=== PATIENT | female | born 1995 | race Caucasian/White ===

== ENCOUNTER 2018-04-20 18:12 | Emergency (ER) | payer SELFPAY ==
--- NOTE | 2018-04-20 19:10 | ER Document Report ---
ED Psych Disorder / Suicide - General Chief Complaint: Psych Problem Stated Complaint: SUICIDAL THOUGHTS Time Seen by Provider: 04/20/18 19:10 Mode of Arrival: Ambulatory Information source: Patient Notes: HISTORY OF PRESENT ILLNESS: Patient is a 22-year-old female with a past medical history of general anxiety disorder with previous suicidal thoughts and self cutting behavior who presents with increased depression sent to the emergency department by her therapist after concerned the patient was suicidal. Onset: Chronic, worsening "the past few days" Provocation: None Quality: Depressed Radiation: None Severity: Moderate to severe Timing: Constant SI/HI: Positive suicidal thoughts without a plan, negative homicidal thoughts Hallucinations: None Current therapist: Yes Current treatment: None REVIEW OF SYSTEMS: CONSTITUTIONAL : Denies fever or chills, no sweats. Denies recent illness. EENT: Denies eye, ear, throat, or mouth pain or symptoms. Denies nasal or sinus congestion. CARDIOVASCULAR: Denies chest pain. RESPIRATORY: Denies cough, cold, or chest congestion. Denies shortness of breath, difficulty breathing, or wheezing. GASTROINTESTINAL: Denies abdominal pain. Denies nausea, vomiting, or diarrhea. Denies constipation. GENITOURINARY: Denies difficulty urinating, painful urination, burning, frequency, or blood in urine. FEMALE GENITOURINARY: Denies vaginal bleeding, abnormal or irregular periods. Last menstrual period MUSCULOSKELETAL: Denies neck or back pain or joint pain or swelling. SKIN: Denies rash or skin lesions. HEMATOLOGIC : Denies easy bruising or bleeding. LYMPHATIC: Denies swollen, enlarged glands. NEUROLOGICAL: Denies altered mental status or loss of consciousness. Denies headache. Denies weakness or paralysis or loss of use of either side. Denies problems with gait or speech. Denies sensory or motor loss. PSYCHIATRIC: Positive for suicidal thoughts. Positive for chronic depression. All other systems reviewed and negative. PHYSICAL EXAMINATION: GENERAL: Well-appearing, well-nourished and in no acute distress. HEAD: Atraumatic, normocephalic. No scalp deformity, depression, or crepitance. EYES: Pupils are 3 mm and equal/round/reactive to light, extraocular movements intact, sclera anicteric, conjunctiva are normal. ENT: Nares patent bilaterally, oropharynx clear without exudates or palatal petechia. Moist mucous membranes. No tonsil hypertrophy. NECK: Normal range of motion, supple without lymphadenopathy. LUNGS: Breath sounds present, equal, and clear to auscultation bilaterally. No wheezes, rales, or rhonchi. HEART: Regular rate and rhythm without murmurs, rubs, or gallops. 2+ peripheral pulses. Normal capillary refill. ABDOMEN: Soft, nontender, nondistended. Normoactive bowel sounds. No guarding, no rebound. No masses appreciated. BACK: Normal contour, no midline tenderness. Rectal exam deferred. PELVC: Deferred. EXTREMITIES: Normal range of motion, no pitting or edema. No cyanosis. NEUROLOGICAL: No focal neurological deficits. Moves all extremities spontaneously and on command. PSYCH: Depressed mood, normal affect. Positive for passive suicidal thoughts/ideations. No homocidal thoughts/ideations. No hallucinations. SKIN: Warm, dry, normal turgor, no rashes or lesions noted. ASSESSMENT AND PLAN: This patient is a 22-year-old female who presents with chronic depression and passive suicidal thoughts. 1. Will proceed with involuntary commitment after medical clearance. 2. Will keep until patient is evaluated by psychiatry in the morning. TRAVEL OUTSIDE OF THE [place] IN LAST 30 DAYS: No - Related Data Allergies/Adverse Reactions: No Known Allergies Allergy (Unverified 04/20/18 18:18) Past Medical History - General Information source: Patient - Social History Smoking Status: Never Smoker Chew tobacco use (# tins/day): No Frequency of alcohol use: None Drug Abuse: None Lives with: Family Family History: Reviewed & Not Pertinent Patient has suicidal ideation: Yes Patient has homicidal ideation: No - Past Medical History Cardiac Medical History: Reports: None Pulmonary Medical History: Reports: None EENT Medical History: Reports: None Neurological Medical History: Reports: None Endocrine Medical History: Reports: None Renal/ Medical History: Reports: None. Denies: Hx Peritoneal Dialysis Malignancy Medical History: Reports: None GI Medical History: Reports: None Musculoskeletal Medical History: Reports None Skin Medical History: Reports None Psychiatric Medical History: Reports: Hx Depression Traumatic Medical History: Reports: None Infectious Medical History: Reports: None Past Surgical History: Reports: Hx Orthopedic Surgery - L wrist in 4th grade - Immunizations Immunizations up to date: Yes Hx Diphtheria, Pertussis, Tetanus Vaccination: Yes History of Influenza Vaccine for 11/2016 - 04/2017 Season: Unknown Physical Exam - Vital signs Vitals: Temp Pulse Resp BP Pulse Ox 99.2 F 108 H 18 130/100 H 97 04/20/18 18:19 04/20/18 18:19 04/20/18 18:19 04/20/18 18:19 04/20/18 18:19 Course - Re-evaluation Re-evalutation: 04/21/18 04:10 Patient is medically cleared. - Vital Signs Vital signs: Temp Pulse Resp BP Pulse Ox 99.2 F 108 H 18 130/100 H 97 04/20/18 18:19 04/20/18 18:19 04/20/18 18:19 04/20/18 18:19 04/20/18 18:19 - Laboratory Result Diagrams: 04/20/18 19:08 04/20/18 19:08 Laboratory results interpreted by me: 04/20/18 19:08 Glucose 131 H AST 43 H ALT 89 H Salicylates < 1.0 L Acetaminophen < 10 L - EKG Interpretation by Nm EKG shows normal: Sinus rhythm Rate: Normal Rhythm: NSR [place]/QRS: No: Right axis deviation, Left axis deviation, RBBB, LBBB, IVCD, LAHB/LAFB, LPHB/LPFB, Bifasicular block Voltage: No: Increased voltage, Consistant with LVH, Decreased voltage, Through out, Limb leads P Waves: No: JUSTIN, LAE, Absent, AV Dissociation, Other Heart block present: No: 1st Degree, Mobitz 1, Mobitz 2, CHB (3rd degree block) When compared to previous EKG there are: No significant change Discharge - Discharge Clinical Impression: Chronic depression, Suicidal ideation Condition: Stable Disposition: PSYCH HOSP/UNIT
[2018-04-20 19:31] LABS: ABSOLUTE BASOPHILS # (AUTO) 0.1 10^3/uL (0.0-0.2); ABSOLUTE EOSINOPHILS # (AUTO) 0.1 10^3/uL (0.0-0.6); ABSOLUTE LYMPHOCYTES (AUTO) 1.5 10^3/uL (0.5-4.7); ABSOLUTE MONOCYTES (AUTO) 0.5 10^3/uL (0.1-1.4); ABSOLUTE NEUT (AUTO) 5.9 10^3/uL (1.7-8.2); BASOPHILS % (AUTO) 0.8 % (0-2); EOSINOPHILS % (AUTO) 0.7 % (0-6); HEMATOCRIT 41.9 % (36.0-47.0); HEMOGLOBIN 14.6 g/dL (12.0-15.5); LYMPHOCYTES % (AUTO) 18.4 % (13-45); MEAN CORPUSCULAR HEMOGLOBIN 30.8 pg (27.0-33.4); MEAN CORPUSCULAR HGB CONC 34.8 g/dL (32.0-36.0); MEAN CORPUSCULAR VOLUME 88 fl (80-97); MONOCYTES % (AUTO) 6.3 % (3-13); PLATELET COUNT 350 10^3/uL (150-450); RED BLOOD COUNT 4.73 10^6/uL (3.72-5.28); SEGMENTED NEUTROPHILS % (AUTO) 73.8 % (42-78); TOTAL CELLS COUNTED % (AUTO) 100 %
[2018-04-20 19:40] LABS: APPEARANCE,URINE SLIGHTLY-CLOUDY; BILIRUBIN,URINE NEGATIVE (NEGATIVE); COLOR,URINE YELLOW; GLUCOSE, URINE NEGATIVE (NEGATIVE); KETONES,URINE NEGATIVE (NEGATIVE); LEUKOCYTE ESTERASE,URINE NEGATIVE (NEGATIVE); NITRITE,URINE NEGATIVE (NEGATIVE); PROTEIN,URINE NEGATIVE (NEGATIVE); UROBILINOGEN,URINE NEGATIVE mg/dL (<2.0)
[2018-04-20 19:43] LABS: ACETAMINOPHEN < 10 ug/mL (10-30); ALANINE AMINOTRANSFERASE 89 U/L (9-52); ALBUMIN 4.7 g/dL (3.5-5.0); ALCOHOL < 10 mg/dL (NONE DETECTED); ALKALINE PHOSPHATASE 60 U/L (38-126); ANION GAP 9 (5-19); ASPARTATE AMINO TRANSFERASE 43 U/L (14-36); BILIRUBIN,DIRECT 0.2 mg/dL (0.0-0.4); BILIRUBIN,TOTAL 0.4 mg/dL (0.2-1.3); BLOOD UREA NITROGEN 12 mg/dL (7-20); CALCIUM 9.9 mg/dL (8.4-10.2); CARBON DIOXIDE 25 mmol/L (22-30); CHLORIDE 107 mmol/L (98-107); GLUCOSE 131 mg/dL (75-110); POTASSIUM 4.6 mmol/L (3.6-5.0); SALICYLATE < 1.0 mg/dL (2.0-20.0); SODIUM 140.7 mmol/L (137-145); TOTAL PROTEIN 7.2 g/dL (6.3-8.2)
[2018-04-20 19:45] LABS: URINE AMPHETAMINES SCREEN NEGATIVE; URINE BARBITURATES SCREEN NEGATIVE; URINE BENZODIAZEPINES SCREEN NEGATIVE; URINE COCAINE SCREEN NEGATIVE; URINE MARIJUANA (THC) SCREEN NEGATIVE; URINE METHADONE SCREEN NEGATIVE; URINE PHENCYCLIDINE SCREEN NEGATIVE
--- NOTE | 2018-04-21 09:40 | ER Document Report ---
Doctor's Note Notes: 04/21/18 09:40 As the rounding physician this AM, I assessed the patient's labs, vitals, and records. No concerning findings this morning. Patient denies any acute complaints. Patient is cleared for disposition by behavioral health team 04/21/18 11:55 She is evaluated by behavioral health services. She has passive suicidal ideation. Home-going recommendations include discontinuation of Celexa, BuSpar and starting of Zyprexa and Cogentin. Patient will follow up with integrated family services. She does have a safety plan and family members who are willing to help her.
--- NOTE | 2018-04-21 11:13 | PSYCHOLOGICAL NOTE ---
Psych Note - Psych Note Date seen by psych provider: 04/21/18 Time seen by psych provider: 07:10 - Physical Chart 0707, Chart review 0714. Evaluation from [id number]. Psych Note: Reason for Consult: Passive SI thoughts and thoughts of self harm Contact Permissions: Roommate Faby Shaw [phone] Patient is a 22 year old female who presented to the ED last evening as a voluntary walk in via roommate for passive thoughts of SI and thoughts of self harm. She identified she resided with a woman who is an [facility] MCM worker so could not evaluate her and instead brought her to the ED. She stated she has "general thoughts of suicide and self harm (last time she engaged in self harming behaviors was January 2018). She identified "a few weeks ago after being okay I felt bad, that's when the thoughts come, I don't think and I end up doing things to hurt myself." She acknowledged "yesterday I saw my therapist and was open about the SI, that I have been having a lot of SI, she said I needed to come been seen and sent somewhere." She reported the therapist is new and yesterday was the second visit. She further stated she has both therapy and medication management at [facility]. She is prescribed Celexa 40MG QD and Buspar 15MG TID. She reported she has been on this medication regimen since December 2017 from the [place] hospitalization. She acknowledged she has been hospitalized "over 10 times." She identified she was hospitalized in [facility] in [place] for 9 months, was discharged October 2017, and discharge was due to getting ready to turn 22 so aging out as well as self harming while in that facility so they sent her to [facility] for acute placement. She reported [facility] diagnosed her with Depression, PTSD, Anxiety and Borderline Personality Disorder. She acknowledged "I have been on a lot of different medications." She noted "Wellbutrin made me really angry, [place] decreased thyroid levels and Latuda was okay but expensive." She noted recent stress surrounding one of the children of the lady she resides with has 4 brain tumors and they are waiting to find out of cancerous or not. 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 Patient was alert and oriented to self, person, place, time and situation. Mood was depressed with flat affect (note she had been sleeping). She denied SI/HI in terms of any plans and admitted to general thoughts of suicide and self harm (has a history of SIB). She did not appear to be responding to internal stimuli as evidenced by fair eye contact, answering questions when addressed, carrying on dialogue conversation and staying on topic. Thought processes were linear and organized. Conversational speech was within normal limits for rate, tone and prosody. Intellectual abilities are estimated to be average. Insight, judgment and impulse control were fair as evidenced by verbalizing her passive SI and self harming thoughts to new therapist and others. Patient gave verbal consent to coordinate care with roommate who happens to be a [facility] M[employer] worker (in this case she is roommate). She identified she will assist patient with scheduling therapy. She noted they left straight form yesterday's therapy appointment and came to the ED so another appointment had not been scheduled. Diagnosis: 311 (F32.9) Unspecified Depressive Disorder per patient [facility] discharge diagnosis 300.00 (F41.9) Unspecified Anxiety Disorder per patient [facility] discharge diagnosis 309.81 (F43.10) Posttraumatic Stress Disorder per patient [facility] discharge d iagnosis 301.83 (F60.3) Borderline Personality Disorder by history per patient [facility] discharge diagnosis Medication recommendations made by the psychiatric medical provider, Dr. Noel gama MD., includes: Discontinue Celexa 40MG daily for depression/anxiety Discontinue Buspar 15MG three times a day for anxiety/calming effect/depression/sleep Add Zyprexa 5MG twice a day for mood stabilization/impulse control Add Cogentin 1MG daily to curb tremor side effects often associated with antipsychotic medication Impression/Plan: Patient is cleared from acute psychiatric services. Recommendation to rescind 24 Hour IVC Petition. She endorsed passive SI (no plans) and thoughts of self harm (has a history of SIB). She told therapist about the thoughts (again no plans, general thoughts) of SI and SIB. She has therapy (new therapist, second session was yesterday) and medication management at [facility]. [facility] identified next medication management appointment is scheduled for 05/07/18 at 1000 and patient can call in every day after 1300 to inquire about cancellations. There is not another therapy appointment scheduled because patient had come from her therapy session yesterday straight to the ED. She had a night of respite and a new medication regimen is being implemented. Patient provided with sheet that documented medication names (brand and generic), what they are meant to treat, doses, and frequencies. Also documented Good RX pooja/website information and cost of medications (cheapest [facility]), as well as next [facility] medication management appointment date and time. Provided Good RX coupon for one medication that required it. Roommate iftikhar teran a patient referral form would be faxed to [facility] for care coordination and continuity of care. Consulted with Dr. Jacobsen regarding the management and care of patient. ED Physician in agreement with recommendations.
[2018-04-21 12:11] VITALS: BP 108/54
--- NOTE | 2018-04-22 10:18 | EKG REPORT ---
SEVERITY:- NORMAL ECG - SINUS RHYTHM : Confirmed by: Irma Vallejo 22-Apr-2018 10:17:31
== END 2018-04-21 12:20 | disposition home or self-care (01) ==
LOC: ER 18:12
DX: R45.851 Suicidal ideations (principal); F32.9 Major depressive disorder, single episode, unspecified
CPT/HCPCS: 36415; 80053; 80307; 81001; 84703; 85025; 93005; 93010; 99285

== ENCOUNTER 2018-04-26 20:48 | Emergency (ER) | payer SELFPAY ==
--- NOTE | 2018-04-26 21:27 | RADIOLOGY REPORT (SQ) ---
EXAM DESCRIPTION: XR WRIST 3 OR MORE VIEWS COMPLETED DATE/TME: 04/26/2018 00:00 CLINICAL HISTORY: 22 years, Female, Fell and injured L wrist COMPARISON: None. FINDINGS: No acute fracture or dislocation. Old ulnar styloid fracture. Mild degenerative changes in the triscaphe joint. Mild soft tissue swelling. IMPRESSION: No acute osseous abnormality.
[2018-04-26] MEDS ORDERED: ACETAMINOPHEN 325 MG TABLET PO ONE (22:26)
[2018-04-26] MEDS ORDERED: IBUPROFEN 600 MG TABLET PO ONE (22:26)
--- NOTE | 2018-04-26 22:48 | ER Document Report ---
ED General - General Chief Complaint: Wrist Injury Stated Complaint: LEFT WRIS INJURY Time Seen by Provider: 04/26/18 21:55 Primary Care Provider: KENNY ARMENDARIZ DO [ACTIVE STAFF] - Follow up in 1 week Notes: Patient is a 22-year-old female with only psychiatric comorbidities, no chronic medical problems, presents complaining of pain to the left wrist. Patient states that she tripped over a carpet, fell onto the ground with an extended left hand. Patient states that since that time she has had throbbing, aching, constant pain to the left wrist. Moving the wrist worsens the pain. Has not trying for improvement of the pain. She is right-hand dominant. Has noted some mild bruising and swelling over the wrist since that time. Did not sustain any additional injuries today. TRAVEL OUTSIDE OF THE [place] IN LAST 30 DAYS: No - Related Data Allergies/Adverse Reactions: No Known Allergies Allergy (Unverified 04/20/18 18:18) Past Medical History - General Information source: Patient - Social History Smoking Status: Never Smoker Frequency of alcohol use: None Drug Abuse: None Lives with: Friend Family History: Reviewed & Not Pertinent Patient has suicidal ideation: No Patient has homicidal ideation: No Renal/ Medical History: Denies: Hx Peritoneal Dialysis Psychiatric Medical History: Reports: Hx Depression Past Surgical History: Reports: Hx Orthopedic Surgery - L wrist in 4th grade - Immunizations Immunizations up to date: Yes Hx Diphtheria, Pertussis, Tetanus Vaccination: Yes Review of Systems - Review of Systems Notes: Constitutional: Negative for fever. Eyes: Negative for visual changes. ENT: Negative for facial injury Cardiovascular: Negative for chest injury. Respiratory: Negative for shortness of breath. Gastrointestinal: Negative for abdominal injury. Genitourinary: Negative for genital injury Musculoskeletal: Positive for left wrist injury Skin: Negative for laceration/abrasions. Neurological: Negative for head injury. Physical Exam - Vital signs Vitals: Temp Pulse Resp BP Pulse Ox 98.9 F 93 20 132/73 H 96 04/26/18 20:53 04/26/18 20:53 04/26/18 20:53 04/26/18 20:53 04/26/18 20:53 Interpretation: Normal Notes: PHYSICAL EXAMINATION: GENERAL: Well-appearing, well-nourished and in no acute distress. HEAD: Atraumatic, normocephalic. EYES: sclera anicteric, conjunctiva are normal. ENT: Moist mucous membranes. NECK: Normal range of motion LUNGS: Normal work of breathing HEART: 2+ radial pulses bilaterally, capillary refill less than 1 second in all digits of the left hand EXTREMITIES: There is bruising over the radial aspect of the left wrist. Exquisite tenderness over the anatomic snuffbox on palpation. RMU motor and sensory distribution intact including against resistance on motor testing. No pitting or edema. No cyanosis. NEUROLOGICAL: No focal neurological deficits. Moves all extremities spontaneously and on command. PSYCH: Normal mood, normal affect. SKIN: Warm, Dry, normal turgor, bruising as above. Course - Re-evaluation Re-evalutation: 04/26/18 22:48 Patient presents with pain left radial wrist radiating into her thumb. This occurred after a fall. There is some noted bruising over this aspect of her wrist. X-ray without any evidence of underlying fracture. However she has focal tenderness over the anatomic snuffbox and has therefore been placed in a thumb spica splint for possible occult scaphoid fracture. RMU motor and sensory distribution is intact. Patient did not sustain any additional injuries during the fall today. At this time will discharge with return precautions and follow- up recommendations. Verbal discharge instructions given a the bedside and opportunity for questions given. Medication warnings reviewed. Patient is in agreement with this plan and has verbalized understanding of return precautions and the need for orthopedic surgical follow-up in the next 24-72 hours. - Vital Signs Vital signs: Temp Pulse Resp BP Pulse Ox 98.5 F 91 18 136/59 H 99 04/26/18 23:29 04/26/18 23:29 04/26/18 23:29 04/26/18 23:29 04/26/18 23:29 - Diagnostic Test Radiology reviewed: Image reviewed, Reports reviewed Radiology results interpreted by me: 04/26/18 22:47 Left wrist x-ray: No acute fracture or dislocation Procedures - Immobilization Left Wrist Pre-Proc Neuro Vasc Exam: Normal Immobilizer type: Thumb spica Performed by: Provider assisted Post-Proc Neuro Vasc Exam: Normal Alignment checked and good: Yes Discharge - Discharge Clinical Impression: Possible scaphoid fracture Left wrist injury Qualifiers: Encounter type: initial encounter Qualified Code(s): S69.92XA - Unspecified injury of left wrist, hand and finger(s), initial encounter Fall Qualifiers: Encounter type: initial encounter Qualified Code(s): W19.XXXA - Unspecified fall, initial encounter Condition: Good Disposition: HOME, SELF-CARE Additional Instructions: Your x-ray does not show any acute fracture today. However, as we discussed you could have a possible underlying scaphoid fracture and have therefore been placed in a thumb spica splint which you need to keep on until you are cleared by orthopedic surgery. I recommend that you follow-up within 1 week with orthopedic surgery for repeat x-rays to evaluate for possible underlying fracture that is not yet able to be visualized. For pain, you should continue to take anti-inflammatories such as ibuprofen 600 mg every 6 hours. Continue to apply ice to the area is much your able. Please return immediately if you develop weakness, numbness, spreading redness from the area, or any other symptoms that are concerning to you. Referrals: KENNY ARMENDARIZ DO [ACTIVE STAFF] - Follow up in 1 week
[2018-04-26 23:33] VITALS: BP 136/59
== END 2018-04-26 23:33 | disposition home or self-care (01) ==
LOC: ER 20:48
DX: S60.212A Contusion of left wrist, initial encounter (principal); M25.532 Pain in left wrist; W01.0XXA Fall on same level from slipping, tripping and stumbling without subsequent striking against object, initial encounter; Y92.009 Unspecified place in unspecified non-institutional (private) residence as the place of occurrence of the external cause
CPT/HCPCS: 99283

== ENCOUNTER 2018-04-28 22:40 | Emergency (ER) | payer SELFPAY ==
[2018-04-28 23:56] LABS: ABSOLUTE BASOPHILS # (AUTO) 0.1 10^3/uL (0.0-0.2); ABSOLUTE EOSINOPHILS # (AUTO) 0.1 10^3/uL (0.0-0.6); ABSOLUTE LYMPHOCYTES (AUTO) 1.5 10^3/uL (0.5-4.7); ABSOLUTE MONOCYTES (AUTO) 0.5 10^3/uL (0.1-1.4); ABSOLUTE NEUT (AUTO) 6.3 10^3/uL (1.7-8.2); BASOPHILS % (AUTO) 0.8 % (0-2); EOSINOPHILS % (AUTO) 0.7 % (0-6); HEMATOCRIT 42.1 % (36.0-47.0); HEMOGLOBIN 14.7 g/dL (12.0-15.5); LYMPHOCYTES % (AUTO) 17.3 % (13-45); MEAN CORPUSCULAR HEMOGLOBIN 30.8 pg (27.0-33.4); MEAN CORPUSCULAR VOLUME 88 fl (80-97); MONOCYTES % (AUTO) 6.2 % (3-13); PLATELET COUNT 306 10^3/uL (150-450); RED BLOOD COUNT 4.78 10^6/uL (3.72-5.28); RED CELL DISTRIBUTION WIDTH 14.3 % (11.5-14.0); TOTAL CELLS COUNTED % (AUTO) 100 %; WHITE BLOOD COUNT 8.4 10^3/uL (4.0-10.5)
[2018-04-29 00:11] LABS: ALANINE AMINOTRANSFERASE 101 U/L (9-52); ALKALINE PHOSPHATASE 71 U/L (38-126); ANION GAP 11 (5-19); ASPARTATE AMINO TRANSFERASE 52 U/L (14-36); BILIRUBIN,DIRECT 0.2 mg/dL (0.0-0.4); BILIRUBIN,TOTAL 0.5 mg/dL (0.2-1.3); BLOOD UREA NITROGEN 14 mg/dL (7-20); CALCIUM 10.5 mg/dL (8.4-10.2); CARBON DIOXIDE 29 mmol/L (22-30); CHLORIDE 100 mmol/L (98-107); GLUCOSE 123 mg/dL (75-110); POTASSIUM 4.2 mmol/L (3.6-5.0); SODIUM 140.4 mmol/L (137-145); TOTAL PROTEIN 7.8 g/dL (6.3-8.2)
[2018-04-29 00:15] LABS: ACETAMINOPHEN < 10 ug/mL (10-30); ALCOHOL < 10 mg/dL (NONE DETECTED); SALICYLATE < 1.0 mg/dL (2.0-20.0)
--- NOTE | 2018-04-29 00:30 | ER Document Report ---
Addendum entered and electronically signed by RAJ REDDY DO 04/29/18 13:52: Discharge - Discharge Clinical Impression: Chronic depression, Borderline personality disorder Condition: Stable Disposition: HOME, SELF-CARE Additional Instructions: You have been evaluated both medical and behavioral health teams have been dejeffery d appropriate for discharge. You are highly encouraged to follow-up with your outpatient mental health provider for continued outpatient mental services. You are also encouraged to fill the prescription you previously received during your visit 04/20/2018. DEPRESSION: Your evaluation reveals that you have mental depression. While symptoms may be vague, they often include disturbance of sleep, fatigue, loss of appetite, and general loss of interest in life. While depression may be a side effect of drugs, or a reaction to a major change in your life, many cases have no known cause. If depression is acute, and related to a major loss in your life, you can expect it to clear completely with time. If you have been depressed a long time, are prone to repeated bouts of depression or low mood, or have been thinking of suicide, get help. Depression can be treated with anti-depressant medication and counselling. Long-term depression will often take a few weeks to clear, even with appropriate medication. Follow-up care is important. SUICIDAL IDEATION: Suicidal ideation is a common medical term for thoughts about suicide, which may be as detailed as a formulated plan, without the suicidal act itself. Although most people who undergo suicidal ideation do not commit suicide, some go on to make suicide attempts. The range of suicidal ideation varies greatly from fleeting to detailed planning, role playing, and unsuccessful attempts. While thoughts about suicide are common, most people do not carry out serious actions to commit suicide. Based upon your evaluation and discussion with you, we do not believe you are currently at risk to act upon your thoughts of suicide. You have agreed to return to the Emergency Department, at any time, if you feel inclined to act upon your suicidal thoughts. FOLLOW-UP CARE: If you have been referred to a physician for follow-up care, call the physicians office for an appointment as you were instructed or within the next two days. If you experience worsening or a significant change in your symptoms, notify the physician immediately or return to the Emergency Department at any time for re-evaluation. Referrals: [facility] [Outside] - Follow up in 3-5 days [facility] [Outside] - Follow up as needed Addendum entered and electronically signed by EMILY MYERS LCSWA 04/29/18 13:30: Discharge - Discharge Clinical Impression: Chronic depression, Borderline personality disorder Condition: Stable Disposition: HOME, SELF-CARE Additional Instructions: You have been evaluated both medical and behavioral health teams have been deemed appropriate for discharge. You are highly encouraged to follow-up with your outpatient mental health provider for continued outpatient mental services. You are also encouraged to fill the prescription you previously received during your visit 04/20/2018. DEPRESSION: Your evaluation reveals that you have mental depression. While symptoms may be vague, they often include disturbance of sleep, fatigue, loss of appetite, and general loss of interest in life. While depression may be a side effect of drugs, or a reaction to a major change in your life, many cases have no known cause. If depression is acute, and related to a major loss in your life, you can expect it to clear completely with time. If you have been depressed a long time, are prone to repeated bouts of depression or low mood, or have been thinking of suicide, get help. Depression can be treated with anti-depressant medication and counselling. Long-term depression will often take a few weeks to clear, even with appropriate medication. Follow-up care is important. SUICIDAL IDEATION: Suicidal ideation is a common medical term for thoughts about suicide, which may be as detailed as a formulated plan, without the suicidal act itself. Although most people who undergo suicidal ideation do not commit suicide, some go on to make suicide attempts. The range of suicidal ideation varies greatly from fleeting to detailed planning, role playing, and unsuccessful attempts. While thoughts about suicide are common, most people do not carry out seri ous actions to commit suicide. Based upon your evaluation and discussion with you, we do not believe you are currently at risk to act upon your thoughts of suicide. You have agreed to return to the Emergency Department, at any time, if you feel inclined to act upon your suicidal thoughts. FOLLOW-UP CARE: If you have been referred to a physician for follow-up care, call the physicians office for an appointment as you were instructed or within the next two days. If you experience worsening or a significant change in your symptoms, notify the physician immediately or return to the Emergency Department at any time for re-evaluation. Referrals: [facility] [Outside] - Follow up as needed [facility] [Outside] - Follow up in 3-5 days Original Note: ED Psych Disorder / Suicide - General Chief Complaint: Psych Problem Stated Complaint: WRIST INJURY/PSYCH ISSUE Time Seen by Provider: 04/29/18 00:30 Mode of Arrival: Ambulatory Information source: Patient Notes: HISTORY OF PRESENT ILLNESS: Patient is a 22-year-old female with a past medical history of depression and previous cutting behavior who presents with suicidal ideations. Onset: Today Provocation: "Been under a lot of stress" Quality: "Thinking of cutting myself" Radiation: None Severity: Moderate Timing: Constant SI/HI: Yes, suicidal Hallucinations: None Current therapist: None Current treatment: Zyprexa REVIEW OF SYSTEMS: CONSTITUTIONAL : Denies fever or chills, no sweats. Denies recent illness. EENT: Denies eye, ear, throat, or mouth pain or symptoms. Denies nasal or sinus congestion. CARDIOVASCULAR: Denies chest pain. RESPIRATORY: Denies cough, cold, or chest congestion. Denies shortness of breath, difficulty breathing, or wheezing. GASTROINTESTINAL: Denies abdominal pain. Denies nausea, vomiting, or diarrhea. Denies constipation. GENITOURINARY: Denies difficulty urinating, painful urination, burning, frequency, or blood in urine. FEMALE GENITOURINARY: Denies vaginal bleeding, abnormal or irregular periods. Last menstrual period MUSCULOSKELETAL: Denies neck or back pain or joint pain or swelling. SKIN: Denies rash or skin lesions. HEMATOLOGIC : Denies easy bruising or bleeding. LYMPHATIC: Denies swollen, enlarged glands. NEUROLOGICAL: Denies altered mental status or loss of consciousness. Denies headache. Denies weakness or paralysis or loss of use of either side. Denies problems with gait or speech. Denies sensory or motor loss. PSYCHIATRIC: Positive for self cutting behavior and suicidal thoughts. Positive for increased depression. All other systems reviewed and negative. PHYSICAL EXAMINATION: GENERAL: Obese-appearing, well-nourished and in no acute distress. HEAD: Atraumatic, normocephalic. No scalp deformity, depression, or crepitance. EYES: Pupils are 3 mm and equal/round/reactive to light, extraocular movements intact, sclera anicteric, conjunctiva are normal. ENT: Nares patent bilaterally, oropharynx clear without exudates or palatal petechia. Moist mucous membranes. No tonsil hypertrophy. NECK: Normal range of motion, supple without lymphadenopathy. LUNGS: Breath sounds present, equal, and clear to auscultation bilaterally. No wheezes, rales, or rhonchi. HEART: Regular rate and rhythm without murmurs, rubs, or gallops. 2+ peripheral pulses. Normal capillary refill. ABDOMEN: Soft, nontender, nondistended. Normoactive bowel sounds. No guarding, no rebound. No masses appreciated. BACK: Normal contour, no midline tenderness. Rectal exam deferred. PELVC: Deferred. EXTREMITIES: Normal range of motion, no pitting or edema. No cyanosis. NEUROLOGICAL: No focal neurological deficits. Moves all extremities spontaneously and on command. PSYCH: Depressed mood, normal affect. Positive passive suicidal ideations. No homocidal thoughts/ideations. No hallucinations. SKIN: Warm, dry, normal turgor, no rashes or lesions noted. ASSESSMENT AND PLAN: This patient is a 22-year-old female who presents with increasing depression and suicidal thoughts of cutting herself, no active plan. 1. Will obtain medical clearance. 2. Will involuntarily commit for inpatient psychiatric treatment. TRAVEL OUTSIDE OF THE [place] IN LAST 30 DAYS: No - Related Data Allergies/Adverse Reactions: No Known Allergies Allergy (Unverified 04/20/18 18:18) Past Medical History - General Information source: Patient - Social History Smoking Status: Never Smoker Chew tobacco use (# tins/day): No Frequency of alcohol use: Occasional Drug Abuse: None Lives with: Family Family History: Reviewed & Not Pertinent Patient has suicidal ideation: Yes Patient has homicidal ideation: No - Past Medical History Cardiac Medical History: Reports: None Pulmonary Medical History: Reports: None EENT Medical History: Reports: None Neurological Medical History: Reports: None Endocrine Medical History: Reports: None Renal/ Medical History: Reports: None. Denies: Hx Peritoneal Dialysis Malignancy Medical History: Reports: None GI Medical History: Reports: None Musculoskeletal Medical History: Reports None Skin Medical History: Reports None Psychiatric Medical History: Reports: Hx Depression Traumatic Medical History: Reports: None Infectious Medical History: Reports: None Past Surgical History: Reports: Hx Orthopedic Surgery - L wrist in 4th grade - Immunizations Immunizations up to date: Yes Hx Diphtheria, Pertussis, Tetanus Vaccination: Yes Physical Exam - Vital signs Vitals: Temp Pulse Resp BP Pulse Ox 98.9 F 100 18 140/84 H 98 04/28/18 22:44 04/28/18 22:44 04/28/18 22:44 04/28/18 22:44 04/28/18 22:44 Course - Re-evaluation Re-evalutation: 04/29/18 05:01 Patient is medically cleared. - Vital Signs Vital signs: Temp Pulse Resp BP Pulse Ox 97.8 F 114 H 18 131/74 H 98 04/29/18 03:53 04/29/18 03:53 04/29/18 03:53 04/29/18 03:53 04/29/18 03:53 - Laboratory Result Diagrams: 04/28/18 23:21 04/28/18 23:21 Laboratory results interpreted by me: 04/28/18 04/28/18 23:21 23:21 RDW 14.3 H Glucose 123 H Calcium 10.5 H AST 52 H ALT 101 H Salicylates < 1.0 L Acetaminophen < 10 L - Diagnostic Test Radiology reviewed: Image reviewed, Reports reviewed - EKG Interpretation by Me EKG shows normal: Sinus rhythm Rate: Tachycardia Rhythm: NSR [place]/QRS: No: Right axis deviation, Left axis deviation, RBBB, LBBB, IVCD, LAHB/LAFB, LPHB/LPFB, Bifasicular block Voltage: No: Increased voltage, Consistant with LVH, Decreased voltage, Throughout, Limb leads P Waves: No: JUSTIN, LAE, Absent, AV Dissociation, Other Heart block present: No: 1st Degree, Mobitz 1, Mobitz 2, CHB (3rd degree block) When compared to previous EKG there are: No significant change Discharge - Discharge Clinical Impression: Chronic depression Condition: Stable Disposition: PSYCH HOSP/UNIT
[2018-04-29 01:00] LABS: APPEARANCE,URINE SLIGHTLY-CLOUDY; BILIRUBIN,URINE NEGATIVE (NEGATIVE); COLOR,URINE YELLOW; GLUCOSE, URINE NEGATIVE (NEGATIVE); KETONES,URINE NEGATIVE (NEGATIVE); LEUKOCYTE ESTERASE,URINE NEGATIVE (NEGATIVE); NITRITE,URINE NEGATIVE (NEGATIVE); PROTEIN,URINE NEGATIVE (NEGATIVE); URINE SPECIFIC GRAVITY 1.017; UROBILINOGEN,URINE NEGATIVE mg/dL (<2.0)
[2018-04-29] MEDS ORDERED: IBUPROFEN 600 MG TABLET PO ONE (01:16)
[2018-04-29] MEDS ORDERED: CEPHALEXIN 500 MG CAPSULE PO ONE (01:16)
[2018-04-29 01:21] LABS: URINE AMPHETAMINES SCREEN NEGATIVE; URINE BARBITURATES SCREEN NEGATIVE; URINE BENZODIAZEPINES SCREEN NEGATIVE; URINE COCAINE SCREEN NEGATIVE; URINE MARIJUANA (THC) SCREEN NEGATIVE; URINE METHADONE SCREEN NEGATIVE; URINE PHENCYCLIDINE SCREEN NEGATIVE
--- NOTE | 2018-04-29 01:30 | EKG REPORT ---
SEVERITY:- BORDERLINE ECG - SINUS TACHYCARDIA BORDERLINE T ABNORMALITIES, ANT-LAT LEADS : Confirmed by: Clarice Rangel MD 29-Apr-2018 01:30:31
--- NOTE | 2018-04-29 02:28 | RADIOLOGY REPORT (SQ) ---
EXAM DESCRIPTION: XR WRIST 3 OR MORE VIEWS COMPLETED DATE/TME: 04/29/2018 01:16 CLINICAL HISTORY: 22 years, Female, Pain COMPARISON: 04/26/2018 left wrist NUMBER OF VIEWS: 4 TECHNIQUE: 4 view left wrist LIMITATIONS: None. FINDINGS: Negative for acute fracture or dislocation. There is an old displaced ulnar styloid fracture. Soft tissues are unremarkable. IMPRESSION: No acute osseous abnormality copyright 2010 [employer]- All Rights Reserved
[2018-04-29] MEDS ORDERED: ONDANSETRON 4 MG TAB.RAPDIS PO ONE (03:39)
[2018-04-29] MEDS ORDERED: ONDANSETRON 4 MG TAB.RAPDIS ONE (03:41)
[2018-04-29 03:58] VITALS: BP 131/74
[2018-04-29] MEDS ORDERED: LORAZEPAM INJ 2 MG/1 ML VIAL IM ONE (05:01)
[2018-04-29] MEDS ORDERED: OLANZAPINE 5 MG TABLET PO ONE (12:43)
--- NOTE | 2018-04-29 13:52 | ER Document Report ---
Doctor's Note Notes: 04/29/18 13:51 Patient seen and examined at approximately 12:30 PM. She states she still feels depressed but denies active suicidal plan. She had had thoughts of cutting herself. She has no active plan to hurt herself at this time. She has no medical complaints or concerns. Affect is flat mildly depressed but patient is cooperative. Mildly tearful intermittently. Head is normocephalic and atraumatic. Pupils are equal and round. Heart is regular rate and rhythm, lungs are clear to oscillation bilaterally. Superficial linear lacerations noted consistent with self- injurious behavior to the left upper extremity. Neurovascularly intact. Plan at this time per psychiatry is to discharge the patient to home. She had been given a prescription for Zyprexa which she had not yet filled. She is strongly encouraged to fill this and be compliant with her medication regimen. She is to follow-up with counseling as described by psych. She is to return to the ED with worsening.
--- NOTE | 2018-04-29 16:16 | PSYCHOLOGICAL NOTE ---
Psych Note - Psych Note Date seen by psych provider: 04/29/18 Time seen by psych provider: 10:10 Psych Note: Reason for Consult: Suicidal ideation Patient is a 22-year-old female with a past medical history of depression and previous cutting behavior who presents with suicidal ideations. Patient reports she came to [facility] ED because she was going to try to kill herself. She reports that she was going to go around the house and get a bunch of medication and take them. She disclosed that she did not do that instead left the home and started walking down the road. She reports she does not know why she did that just had a lot on her mind and wanted to think. Patient states she is got "a lot of things going on at once." She continues close that her roommates daughter was diagnosed with cancer and has been very stressful for her. She also reports she could not find her phone so she picked up her roommates phone to use it and sought text messages between her roommate and her roommate's boyfriend calling her (the patient) a "retard." She discloses history of mental health diagnosis depression, PTSD, and borderline personality disorder. She states she has an [facility]. When asked if she filled medications previously provided to her by [facility] during her previous visit she denies stating that "I gave it to my roommate but she never filled it." Behavior health team contacted patient's roommate. She confirms to be part of the patient's discharge plan i.e. no access to medications weapons and will follow through with mental health recommendations. She discloses that patient does have a diagnosis of borderline personality disorder and for the first time the other day was asked to accomplish multiple tasks in the house. She discloses that previous day she was babysitting and let the children destroyed the house so it asked her to clean certain things up. She feels this may have resulted in the patient having her current crisis. Patient is alert and orientated to person, place, time and circumstance. Mood is dysphoric with blunted affect. Patient endorses passive suicidal ideation i.e. no plans means or intent. Patient denies homicidal ideation. Delusions are absent behaviors congruent with an intact reality based presentation i.e. organized and linear thought process. Eye contact is fair. Conversational speech is quiet and difficult to hear at times. Intellectual abilities appear to be within the average range. Attention and concentration are fair. Insight, judgment, impulse control is good as evidenced by removing herself from the situation when having thoughts of harming herself, and asking for assistance. No medication recommendations at this time; patient is non-med compliant 301.83 (F60.3) Borderline Personality Disorder by history per patient [facility] discharge diagnosis 311 (F32.9) Unspecified Depressive Disorder per patient [facility] discharge diagnosis 300.00 (F41.9) Unspecified Anxiety Disorder per patient [facility] discharge diagnosis 309.81 (F43.10) Posttraumatic Stress Disorder per patient [facility] discharge diagnosis Impression\\plan: Patient is cleared from acute psychiatric services. Patient does not meet IVC criteria per ID GS 122C. While patient reports suicidal ideation it is chronic and passive in nature. Patient provided conflicting information in plan to [facility] providers i.e. told attending physician last night she was think about cutting herself, today she states that she was planning on overdosing. Patient confirms she did not take any actions and left the home to walk down the street to think. Patient was previously seen by behavioral health team provided medication recommendations. Patient did not picker/puller these medications. Patient does have an outpatient mental health provider. Most appropriate therapeutic treatment would be outpatient mental health services in the form of therapeutic intervention to learn positive coping skills and learn to identify triggers. Further medication recommendations can then be reassessed through her outpatient mental health provider. Dr. Jacobsen was consulted and the care management of this patient; attending physicians in agreement with recommendations and disposition.
== END 2018-04-29 13:58 | disposition home or self-care (01) ==
LOC: ER 22:40
DX: F32.9 Major depressive disorder, single episode, unspecified (principal); R00.0 Tachycardia, unspecified; F60.3 Borderline personality disorder; F41.9 Anxiety disorder, unspecified; F43.10 Post-traumatic stress disorder, unspecified
CPT/HCPCS: 93005; 99284; 96372; 36415; 80307 ×4; 85025; 80053; 81001; 73110; 93010; S0119; J2060

== ENCOUNTER 2018-05-09 14:08 | Emergency (ER) | payer SELFPAY ==
--- NOTE | 2018-05-09 14:43 | ER Document Report ---
ED General - General Chief Complaint: Overdose Stated Complaint: OVERDOSE Time Seen by Provider: 05/09/18 14:29 Notes: 22-year-old female with clear history of cutting presents via EMS for overdosing on prescription buspirone and Celexa. Per EMS report happened at approximately 1300 today. In route she received normal saline 1 L bolus. Patient is somnolent but is arousable. Unable to obtain history at this time. Both of her prescription medication bottles were brought in and they were both empty. TRAVEL OUTSIDE OF THE [place] IN LAST 30 DAYS: No - Related Data Allergies/Adverse Reactions: No Known Allergies Allergy (Unverified 04/20/18 18:18) Past Medical History - Social History Smoking Status: Unknown if Ever Smoked Chew tobacco use (# tins/day): No Family History: Reviewed & Not Pertinent Patient has suicidal ideation: Yes Patient has homicidal ideation: No Renal/ Medical History: Denies: Hx Peritoneal Dialysis Psychiatric Medical History: Reports: Hx Depression Past Surgical History: Reports: Hx Orthopedic Surgery - L wrist in 4th grade - Immunizations Immunizations up to date: Yes Hx Diphtheria, Pertussis, Tetanus Vaccination: Yes Review of Systems - Review of Systems -: Yes ROS unobtainable due to patient's medical condition Physical Exam - Vital signs Vitals: Temp Pulse Resp BP Pulse Ox 98.0 F 100 13 142/72 H 96 05/09/18 14:09 05/09/18 14:09 05/09/18 14:09 05/09/18 14:09 05/09/18 14:09 - Notes Notes: PHYSICAL EXAMINATION: Reviewed vital signs and charting by RN GENERAL: Somnolent, opens eyes briefly to noxious stimulus. No acute distress. HEAD: Normocephalic, atraumatic. EYES: Pupils equal, round, and reactive to light. ENT: Oral mucosa moist, tongue midline. NECK: Full range of motion. Supple. Trachea midline. LUNGS: Clear to auscultation bilaterally, no wheezes, rales, or rhonchi. No respiratory distress. HEART: Regular rate and rhythm. No murmur ABDOMEN: soft, non-tender. Non-distended. Bowel sounds present in all 4 quadrants. no McBurney's point tenderness, no Quiroz sign. EXTREMITIES: Moves all 4 extremities spontaneously. No edema, No cyanosis. BACK: no cervical, thoracic, lumbar midline tenderness. No saddle anesthesia, normal distal neurovascular exam. NEUROLOGICAL: Alert and oriented x3. Normal speech. PSYCH: Normal affect, normal mood. SKIN: Warm, dry, normal turgor. Bilateral anterior forearms with multiple scarring consistent with history of cutting, scars on bilateral lower extremities consistent with history of cutting. Course - Re-evaluation Re-evalutation: 05/09/18 14:42 22 female presents after overdose of her prescription buspirone and Celexa. Poison control was contacted and their recommendation is 24 hours of cardiac monitoring, EKGs every 6 hours, and if patient is awake and can protect her airway activated charcoal. Patient is not alert enough at this time for that. 05/09/18 15:57 Briefly spoke with Lambert, part of the psychiatric team in the ED, and she knows this patient. She states that the patient had prescriptions dating as far back as late last year and she never got them refilled. I looked at the prescriptions and the buspirone was dated as being filled in October 2017. The Celexa is from early February 2018. Patient was up and ambulating asking to go to the bathroom. I then asked her if she did indeed take the pills because she has a suspected borderline personality disorder and she immediately shut down. Lab work is pending. 05/09/18 17:50 Lab work returned and is unremarkable. Patient has a mild non-anion gap metabolic acidosis. EKG normal. No QT prolongation. Salicylates, acetaminophen, alcohol, and urine drug tox were all negative. Cardiac monitoring is still recommended by poison control for 24 hours so the patient will get EKGs at 1830, 0030, and 0630. Patient has been IVC per psych. 05/10/18 08:01 No QT prolongation in any of her EKGs. Cardiac monitoring did not show any arrhythmias. Patient is medically cleared for psychiatric evaluation. - Vital Signs Vital signs: Temp Pulse Resp BP Pulse Ox 98.4 F 100 18 130/80 H 93 05/10/18 06:01 05/09/18 14:09 05/10/18 07:01 05/10/18 07:01 05/10/18 07:01 - Laboratory Result Diagrams: 05/09/18 14:16 05/09/18 14:16 Laboratory results interpreted by me: 05/09/18 05/09/18 05/09/18 14:16 14:16 14:16 RDW 14.5 H Carbon Dioxide 21 L Glucose 205 H AST 67 H ALT 94 H Urine Urobilinogen Salicylates < 1.0 L Acetaminophen < 10 L 05/09/18 14:30 RDW Carbon Dioxide Glucose AST ALT Urine Urobilinogen 2.0 H Salicylates Acetaminophen Discharge - Discharge Clinical Impression: Suicide attempt by substance overdose Qualifiers: Encounter type: initial encounter Qualified Code(s): T65.92XA - Toxic effect of unspecified substance, intentional self-harm, initial encounter Condition: Stable Admitting Provider: Jyotsna Jacobsen
[2018-05-09 14:56] LABS: APPEARANCE,URINE CLEAR; BILIRUBIN,URINE NEGATIVE (NEGATIVE); COLOR,URINE YELLOW; GLUCOSE, URINE NEGATIVE (NEGATIVE); KETONES,URINE NEGATIVE (NEGATIVE); LEUKOCYTE ESTERASE,URINE NEGATIVE (NEGATIVE); NITRITE,URINE NEGATIVE (NEGATIVE); PROTEIN,URINE NEGATIVE (NEGATIVE); URINE SPECIFIC GRAVITY 1.015
[2018-05-09 14:57] LABS: ABSOLUTE BASOPHILS # (AUTO) 0.1 10^3/uL (0.0-0.2); ABSOLUTE LYMPHOCYTES (AUTO) 1.4 10^3/uL (0.5-4.7); ABSOLUTE MONOCYTES (AUTO) 0.5 10^3/uL (0.1-1.4); ABSOLUTE NEUT (AUTO) 5.7 10^3/uL (1.7-8.2); BASOPHILS % (AUTO) 0.7 % (0-2); EOSINOPHILS % (AUTO) 0.3 % (0-6); HEMOGLOBIN 14.4 g/dL (12.0-15.5); LYMPHOCYTES % (AUTO) 17.7 % (13-45); MEAN CORPUSCULAR HEMOGLOBIN 30.7 pg (27.0-33.4); MEAN CORPUSCULAR VOLUME 88 fl (80-97); PLATELET COUNT 334 10^3/uL (150-450); RED BLOOD COUNT 4.69 10^6/uL (3.72-5.28); RED CELL DISTRIBUTION WIDTH 14.5 % (11.5-14.0); SEGMENTED NEUTROPHILS % (AUTO) 75.3 % (42-78); TOTAL CELLS COUNTED % (AUTO) 100 %; WHITE BLOOD COUNT 7.6 10^3/uL (4.0-10.5)
[2018-05-09 15:02] LABS: ALANINE AMINOTRANSFERASE 94 U/L (9-52); ALBUMIN 4.6 g/dL (3.5-5.0); ALKALINE PHOSPHATASE 58 U/L (38-126); ANION GAP 15 (5-19); ASPARTATE AMINO TRANSFERASE 67 U/L (14-36); BILIRUBIN,DIRECT 0.4 mg/dL (0.0-0.4); BILIRUBIN,TOTAL 0.6 mg/dL (0.2-1.3); BLOOD UREA NITROGEN 14 mg/dL (7-20); CARBON DIOXIDE 21 mmol/L (22-30); CHLORIDE 104 mmol/L (98-107); GLUCOSE 205 mg/dL (75-110); POTASSIUM 4.1 mmol/L (3.6-5.0); SODIUM 139.5 mmol/L (137-145); TOTAL PROTEIN 6.7 g/dL (6.3-8.2)
[2018-05-09 15:11] LABS: URINE AMPHETAMINES SCREEN NEGATIVE; URINE BARBITURATES SCREEN NEGATIVE; URINE BENZODIAZEPINES SCREEN NEGATIVE; URINE COCAINE SCREEN NEGATIVE; URINE MARIJUANA (THC) SCREEN NEGATIVE; URINE METHADONE SCREEN NEGATIVE; URINE PHENCYCLIDINE SCREEN NEGATIVE
[2018-05-09] MEDS ORDERED: NORMAL SALINE 1000 ML 1,000 ML IV ONE (16:00)
[2018-05-09 16:19] LABS: ACETAMINOPHEN < 10 ug/mL (10-30); ALCOHOL < 10 mg/dL (NONE DETECTED); SALICYLATE < 1.0 mg/dL (2.0-20.0)
--- NOTE | 2018-05-09 17:06 | PSYCHOLOGICAL NOTE ---
Psych Note - Psych Note Date seen by psych provider: 05/09/18 Time seen by psych provider: 14:45 Psych Note: Reason for consult:OD Contact Permissions: Patient was noted by doctor to be verbally unresponsive after arrival so chart review conducted. Patient is a 22 yo female presenting to the ED via EMS after intentional OD and leaving a letter stating the number of pills as 80 Celexa and 32 Buspar and family members numbers. She states she called EMS after she got scared. Chart review shows patient was seen on 03/2018 and 04/2018 for SI with plan to OD with no intent. Patient was discharged from [facility] to [place] in 10/2017 after 9 months. Patient has situational stress related to her room mate's child having 4 brain tumors. She has a significant NNSI hx with cutting behaviors. Toxicology screen is negative for all substances. Diagnosis: Unspecified Depressive Disorder Unspecified Anxiety Disorder PTSD [place]line Personality Disorder Medication recommendations as per psychiatric provider, Dr. Buenrostro are as follows: No medication recommendations at this time. Impression/Plan: Patient is recommended for IVC due to risk of harm to self aeb patient reportedly OD on her home medications and has been verbally unresponsive. Patient will be held overnight for further observation and evaluation. Consulted Dr. Jacobsen in the care and treatment of this patient and ED physician who is in agreement with disposition and recommendation.
--- NOTE | 2018-05-09 17:25 | EKG REPORT ---
SEVERITY:- BORDERLINE ECG - SINUS TACHYCARDIA BORDERLINE T ABNORMALITIES, ANTERIOR LEADS : Confirmed by: Dm Mathew MD 09-May-2018 17:24:32
--- NOTE | 2018-05-09 22:46 | EKG REPORT ---
SEVERITY:- BORDERLINE ECG - SINUS RHYTHM BORDERLINE T ABNORMALITIES, ANTERIOR LEADS BORDERLINE PROLONGED QT INTERVAL : Confirmed by: Dm Mathew MD 09-May-2018 22:45:27
--- NOTE | 2018-05-10 08:32 | EKG REPORT ---
SEVERITY:- BORDERLINE ECG - SINUS RHYTHM BORDERLINE T ABNORMALITIES, ANT-LAT LEADS : Confirmed by: Dm Mathew MD 10-May-2018 08:32:17
--- NOTE | 2018-05-10 08:32 | EKG REPORT ---
SEVERITY:- BORDERLINE ECG - SINUS RHYTHM BORDERLINE T ABNORMALITIES, ANTERIOR LEADS BORDERLINE PROLONGED QT INTERVAL : Confirmed by: Dm Mathew MD 10-May-2018 08:32:05
--- NOTE | 2018-05-10 10:22 | ER Document Report ---
Doctor's Note Notes: 05/10/18 10:22 22-year-old female with a possible overdose on Wellbutrin and Celexa yesterday. Poison control recommended 24-hour cardiac monitoring. This has been completed. Vital signs stable. Awaiting psychiatric/psychology profile evaluation. Patient denies any complaints at this time. 05/10/18 11:39 Psychology team will hold overnight and reassess in the morning. No medications will be started at this time.
--- NOTE | 2018-05-10 16:39 | EKG REPORT ---
SEVERITY:- BORDERLINE ECG - SINUS RHYTHM BORDERLINE T ABNORMALITIES, ANTERIOR LEADS : Confirmed by: Dm Mathew MD 10-May-2018 16:39:08
--- NOTE | 2018-05-10 18:27 | PSYCHOLOGICAL NOTE ---
Psych Note - Psych Note Date seen by psych provider: 05/10/18 Time seen by psych provider: 07:30 Psych Note: Reason for consult:SI Contact Permissions: Patient is a 22 yo female presenting to the ED via EMS after intentional OD and leaving a letter stating the number of pills as 80 Celexa and 32 Buspar. Patient reports that she "just got tired of it all" explaining that she has to move in "August and then move again". Her parents don't want her and the friend she reached out to on Friday never responded. Patient insists she took the Celexa and Buspar quantities reported and then called 911 because she got scared. Of note, Patient discharged from [facility] "where I slept the whole time" on Friday. She has not filled her scripts from her discharge. She reports constant depression and SI over the last few weeks with onset in January and states she has active SI right now and is "mad at myself for not going throught with it". Her first OD was in 9th grade on Tylenol and had multiple OD's since but cannot quantify. Patient moved here from [facility] because her parents "didn't want me and I can't hold down a job". She is enrolled in community college for online classes but hasn't participated. She is noted to have recent cuts on her left outer forearm and does have a known hx of cutting. Patient is alert and oriented x 4. Mood is dysthymic with flat affect. Patient endorses SI, and denies HI, and AV/H, does not appear to be responding to internal stimuli, and no delusions were noted. Conversational speech was WNL for rate, tone, and prosody. Eye contact was maintained. Thought processes were linear, organized. Intellectual abilities were estimated within the average range. Attention/concentration was WNL while, insight, judgment, and impulse control were poor. Diagnosis: 311 (F32.9) Unspecified Depressive Disorder per patient [place] discharge diagnosis 300.00 (F41.9) Unspecified Anxiety Disorder per patient [place] discharge diagnosis 309.81 (F43.10) Posttraumatic Stress Disorder per patient [place] discharge diagnosis 301.83 (F60.3) Borderline Personality Disorder by history per patient [place] discharge diagnosis Medication recommendations made by the psychiatric medical provider, Dr. Porter MD., includes: Discontinue Celexa 40MG daily for depression/anxiety Discontinue Buspar 15MG three times a day for anxiety/calming effect/depression/sleep Add Zyprexa 5MG twice a day for mood stabilization/impulse control Add Cogentin 1MG daily to curb tremor side effects often associated with antipsychotic medication Medication recommendations as per psychiatric provider, Dr. Buenrostro are as follows: Impression/Plan: Patient is recommended to remain under IVC for risk of harm to self aeb patient continues to endorse active SI "I'm mad at myself for not going through with it". Patient is a 22 yo who per chart review and report has spent a significant amount of time over the last 12 months in residential MH or psychiatric IP treatment, discharged from [facility] on Friday, and self-reported OD on Friday presenting [facility] via EMS. She concurrently has housing issues that she admits factor into her decision. Given this, it appears patient is not utilizing outpatient treatment as she should. Plan is to hold overnight for medication stabilization, further observation and evaluation as patient was still under poison control protocol. Labs have been unremarkable thus far so patient can likely be discharged tomorrow. Her next therapy appointment with [facility] is 05/19/18. Consulted Dr. Jacobsen in the care and treatment of this patient and ED physician who is in agreement with disposition and recommendation.
[2018-05-11] MEDS ORDERED: ACETAMINOPHEN 325 MG TABLET PO ONE (01:38)
[2018-05-11] MEDS ORDERED: OLANZAPINE 5 MG TABLET PO ONE (09:50)
[2018-05-11] MEDS ORDERED: BENZTROPINE MESYLATE 1 MG TABLET PO ONE (09:51)
--- NOTE | 2018-05-11 10:26 | ER Document Report ---
Doctor's Note Notes: 05/11/18 10:25 Rounds: Chart reviewed and patient interviewed. Patient is being evaluated for depression and suicidal ideation. Patient is also a cutter. Took an overdose of BuSpar and Celexa but has no significant symptoms from these medications. Patient is reportedly homeless. Lab studies were all essentially normal. Vital signs are all essentially normal. Patient appears to be medically stable for transfer or discharge. Quoc Sparks MD
--- NOTE | 2018-05-11 11:34 | PSYCHOLOGICAL NOTE ---
Psych Note - Psych Note Date seen by psych provider: 05/11/18 Time seen by psych provider: 08:00 Psych Note: Reason for consult:reported intentional OD Contact Permissions: none provided Upon arrival, patient was noted by doctor to be verbally unresponsive so chart review conducted. Patient is a 22 yo female presenting to the ED via EMS after intentional OD and leaving a letter stating the number of pills as 80 Celexa and 32 Buspar and family members numbers. She states she called EMS after she got scared. Check-in conducted with patient Clinician and patient discussed patient's will to get better and controlling her future. She reports she does want to get better but "it is so hard sometimes." Clinician provided psychoeducation on the importance of medication compliance and following mental health recommendations i.e. outpatient therapy in the form of either CBT or DBT. Patient needs to learn how to reinterpret her environment, learn her triggers and positive coping skills. Clinician discussed the importance of therapeutic services with patient. Patient reports she has no where to go as she was kicked out of her apartment. No medication recommendations at this time; patient is non-med compliant 301.83 (F60.3) Borderline Personality Disorder by history per patient [place] discharge diagnosis 311 (F32.9) Unspecified Depressive Disorder per patient [place] discharge diagnosis 300.00 (F41.9) Unspecified Anxiety Disorder per patient [place] discharge diagnosis 309.81 (F43.10) Posttraumatic Stress Disorder per patient [place] discharge diagnosis Impression\\plan: Patient is cleared from acute psychiatric services. Patient does not meet IVC criteria per [place] GS 122C. While patient reports suicidal ideation it is chronic and passive in nature. Patient provided conflicting information [facility] providers i.e. told [facility] staff she overdosed; however, there is currently no clinical evidence to support this report per attending physician. Patient was previously seen by behavioral health team and provided medication recommendations on 04/21/2018. Patient did not bean picker these medications. Patient was again seen on 04/29/2018 and recommendations were to follow previous recommendations and fill prescriptions from 04/21/2018 visit; she did not follow recommendations. She then voluntarily admitted herself to [facility] and was discharged Friday (05/08/2018); she did not fill her prescriptions and came to [facility] ED the next day (Friday05/09/2018). Patient does have an outpatient mental health provider. Inpatient would not be appropriate for this patient, the most appropriate therapeutic treatment would be outpatient mental health services in the form of therapeutic intervention to learn positive coping skills and learn to identify triggers. Further medication recommendations can then be reassessed through her outpatient mental health provider. Patient was provided homeless resource packet. Dr. Jacobsen was consulted and the care management of this patient; attending physicians in agreement with recommendations and disp osition.
[2018-05-11 12:17] VITALS: BP 107/64
== END 2018-05-11 12:23 | disposition home or self-care (01) ==
LOC: ER 14:08
DX: T43.592A Poisoning by other antipsychotics and neuroleptics, intentional self-harm, initial encounter (principal); T43.222A Poisoning by selective serotonin reuptake inhibitors, intentional self-harm, initial encounter; R40.0 Somnolence; E87.2 Acidosis; F32.9 Major depressive disorder, single episode, unspecified; Z59.0 Homelessness
CPT/HCPCS: 93005 ×2; 99285; 96360; 96361; 36415; 80307 ×4; 85025; 80053; 81001; 93010 ×2; J7030